=== PATIENT | male | born 1940 | race Caucasian/White ===

== ENCOUNTER → 2016-12-30 | Outpatient (CLI) | payer MEDICARE ==
--- NOTE | 2016-12-30 12:13 | CT ---
EXAMINATION TYPE: CT image guided sinus DATE OF EXAM: 12/30/2016 COMPARISON: NONE HISTORY: Pre surgical planning CT DLP: 531 mGycm. Automated Exposure Control for Dose Reduction was Utilized. TECHNIQUE: CT scan of the sinuses is performed without contrast, axial images obtained. FINDINGS: Oropharynx symmetric. Posterior nasopharynx demonstrates asymmetry on the right slight lobulation measuring 5 mm could be r elated to mucosal lesion best noted on axial image 12. Nasal septal deviation seen and there is mild mucosal thickening involving the maxillary sinuses. Mor e moderate changes are seen involving the ethmoid air cells and frontal sinus. No air-fluid levels. Osseous structures are otherwise intact. Intracranial structures and intraorbital structures have a n ormal appearance. There is a small amount of soft tissue density within the right mastoid air cells. IMPRESSION: 1. Changes of mild to moderate chronic sinusitis. 2. There does appear to be asymmetry of the mucosa of the nasopharynx measuring 5 mm on the right and best noted on axial image 12. Correlate for mucosal lesion. However, this finding appears stable karina ing back to a CT of the head dated 2012 and likely therefore is benign. Chronic right mastoiditis.
== END | disposition home or self-care (01) ==
LOC: RADCTMAIN 11:28
PROVIDERS: ATTEND Otolaryngology
DX: J32.9 Chronic sinusitis, unspecified (principal); J39.2 Other diseases of pharynx
CPT/HCPCS: 70486

== ENCOUNTER 2017-01-13 07:25 | Day surgery (SDC) | payer MEDICARE ==
[2017-01-05 08:48] VITALS: BMI 32.5
[~2017-01-13 07:25] MED LIST: DEXAMETHASONE SOD PHOSPHATE 10 MG/ML 1 ML VIAL IV ONE; DEXAMETHASONE SOD PHOSPHATE 4 MG/ML 1 ML VIAL IV ONE; FAMOTIDINE 20 MG/2 ML VIAL IV ONE; HYDROmorphone 1 MG/ML 1 ML SYRINGE IVP PRN; LIDOCAINE 1% 20 ML VIAL (10MG/ML) FOR IV START INTRADERMA PRN; MIDAZOLAM 2 MG/2 ML VIAL IV PRN; ONDANSETRON 4 MG/2 ML VIAL IVP ONE; SCOPOLAMINE 1.5MG/72HR PATCH TRANSDERM ONE; ceFAZolin 1,000 MG in DEXTROSE/WATER 1 50ML.BAG IV ONE
[2017-01-13] MEDS: OXYMETAZOLINE 0.05% NASL SPRAY 1 SPRAY BOTTLE NASAL ONE ×6 (07:45→08:07)
[2017-01-13 08:05] LABS: Glucose,Whole Blood 208 mg/dL (75-99)
[2017-01-13] MEDS: LACTATED RINGERS 1,000 ML IV SCH ×2 (08:13→09:22)
[2017-01-13] MEDS ORDERED: MIDAZOLAM 2 MG/2 ML VIAL ONE (09:24)
[2017-01-13] MEDS ORDERED: PROPOFOL 10 MG/ML 20 ML VIAL IV ONE (09:24)
[2017-01-13] MEDS ORDERED: SUCCINYLCHOLINE CHLORIDE 100 MG/5 ML SYR IV ONE (09:24)
[2017-01-13] MEDS ORDERED: LIDOCAINE 1% INJ 10MG/ML (20 ML MDV) ONE (09:24)
[2017-01-13] MEDS ORDERED: fentaNYL (PF) 50 MCG/ML 2 ML AMP ONE (09:24)
[2017-01-13] MEDS ORDERED: FLUORESCEIN STRIPS 1 MG STRIP MISCELLANE ONE (10:00)
[2017-01-13] MEDS ORDERED: EPINEPHrine 1 MG/ML (MDV) 30 ML VIAL IRRIGATION ONE (10:00)
[2017-01-13] MEDS ORDERED: CIPROFLOXACIN-DEXAMETH 0.3-0.1% DROPS 7.5 ML BTL RIGHT EAR ONE (10:00)
[2017-01-13] MEDS ORDERED: BUPIVACAIN-EPI 0.5%-1:200,000 30 ML VIAL SQ ONE (10:00)
[2017-01-13] MEDS ORDERED: LIDOCAINE 2%-EPI 1:100,000 20 ML VIAL SQ ONE (10:01)
[2017-01-13] MEDS ORDERED: BACITRACIN 500 UNIT/GM OINT 28.4 GM TUBE TOPICAL ONE (10:50)
[2017-01-13] MEDS ORDERED: LACTATED RINGERS 1,000 ML IV ONE (10:57)
[2017-01-13 11:14] VITALS: TEMP 97.2
--- NOTE | 2017-01-13 11:17 | P.OP ---
Date of Procedure: 01/13/17 Preoperative Diagnosis: Chronic otitis media with effusion right ear Eustachian tube dysfunction right ear Conductive hearing loss right ear Chronic sinusitis and ALLERGIC fungal sinusitis Sinonasal polyposis Deviated nasal septum Hypertrophy of bilateral intranasal inferior turbinates with obstruction Postoperative Diagnosis: Same Procedure(s) Performed: Right-sided direct microscopic tympanostomy and tube placement utilizing ultraseal tube Septoplasty Bilateral outfracture compression and submucosal resection of the inferior turbinates, Image guided- Bilateral functional endoscopic sinus surgery with polypectomy Implants: Anesthesia: GETA Surgeon: Eliezer Mcginnis Estimated Blood Loss (ml): 15 Pathology: other (Sinonasal) Condition: stable Disposition: PACU Indications for Procedure: This patient presented to the office with chronic ear problems. He has right ear fullness pressure on multiple sound he was found have polyps chronic sinusitis deviated nasal septum and large and obstructive inferior turbinates. He failed medical therapy with use of cortisone nasal sprays antibiotics etc. After long discussion and review of his failure of medical therapy with decided to proceed forward with a right tube placement septoplasty correction turbinate reduction and sinus surgery with polypectomy. All risks, benefits, and alternative therapies were discussed in detail. Consent was obtained and all questions were answered. Operative Findings: Patient's right tympanic members was thickened and retracted with the middle- ear effusion present. The sinuses showed a deviated nasal septum bilateral intranasal and sinonasal polyposis block sinuses and purulence and inflammatory diseased tissue throughout all sinuses. Description of Procedure: This patient was taken to the operative room and placed in the supine position. A general inhalation anesthetic was administered to the patient by the department of anesthesia with a functioning IV line in place. The patient was monitored throughout the entire case by the department of anesthesia. The eyes were taped shut for protection. The patient was placed in a slight reverse Trendelenburg position. The patient had previously utilize Afrin nasal spray preoperatively. The nose was evaluated and the septum lateral nasal wall and inferior turbinates were injected with lidocaine 1% with epinephrine 1 100,000 bilaterally. Approximately 10 minutes were allowed wait for full vasoconstrictive effects to take place. At this point a caudal incision was made over the caudal portion of the left septum down to the mucoperichondrium. A mucoperichondrial flap was elevated on the left side and dissection was carried with use of tunnels posteriorly. We then made a crossover incision through the cartilage to the contralateral side and for the mucoperichondrial flap development was performed to the extent of visualization on the contralateral side. After the cartilage was freed with use of several crosshatching incisions and removal of some redundant strips of septal cartilage, the septum was straightened and placed back in the midline. The septum was sutured fixated to the ovarian groove. Excellent straightening occurred and the septum was visibly straight. Incision was closed with a 40 rapid Vicryl. We utilized a running nonlocking fashion for closure of the incision. A quilting stitch was used to reapproximate the septal flaps with use of a 40 rapid Vicryl. We then entered the nose with a 0 and 30 Villafuerte adi endoscope. We did utilized image guided technology for this entire procedure. We registered the anatomic we would points. We utilized a [employer] system. Throughout the entire case we utilized the image guided system for anatomic guidance. Previous to this we did inject the lateral nasal wall and middle turbinate and uncinate process with lidocaine 1% with epinephrine 1 100,000. Approximately 10 minutes were allowed wait for full vasoconstrictive effects to take place. Intranasal polyps were noted. They were noted bilaterally. The intranasal polyps were removed with use of a microdebrider. With use of a microdebrider and a pediatric backbiter, we took down the uncinate process bilaterally. We then opened the maxillary sinuses bilaterally. We utilized a microdebrider for this and entered the maxillary sinuses and removed diseased tissue and polypoid tissue. This was done bilaterally. After the maxillary sinuses were opened and the diseased tissue and polyps were removed we entered the ethmoid bulla and with use of a microdebrider and up-biting Juan, we remove the anterior septations and remove diseased tissue from the anterior ethmoids with direct visualization. We then followed the fovea frontalis through the basal lamella and into the posterior ethmoid air cells and did a total ethmoidectomy with removal of polypoid material. Once the ethmoids cells were all taken down we then entered the sphenoid sinus medially and inferiorly underneath the inferior attachment of the superior turbinate. The sphenoid sinus was opened entered and diseased tissue and polyps were removed bilaterally. This was done with a microdebrider and Blakesley. We then entered the frontal sinuses with a giraffe and up-biting Mile entered on the agar nasi cells. We open the frontal sinuses and removed sinus tissue and polypoid tissue that was diseased. We explored the frontal sinuses bilaterally. To summarize all sinuses were open all sinuses were explored and we remove diseased tissue and polyps from the sphenoid maxillary and frontal sinuses. Polyps were removed from the nose. Ethmoid sinuses were opened totally. PROPEL AND XEROGEL AND WILFRID was inserted bilaterally and minimal bleeding was encountered. We reinspected the skull base there is no signs of any orbital penetration or signs of any intracranial penetration. The sugical site was reinspected after the nasal pore was placed and no bleeding was seen. Attention was then paid to the inferior turbinates. The bilateral inferior turbinates were hypertrophic and obstructive. We entered the anterior portion of the inferior turbinates with use of a microdebrider. We remove bone and submucosal elements with use of a microdebrider bilaterally. The inferior turbinates underwent a submucosal resection with removal of submucosal tissue and bone. We obtained a much better and normal in size for breathing. The inferior turbinates were then outfractured and compressed with a Boyes nasal elevator. Excellent airway was obtained and was symmetric bilaterally. No bleeding was encountered. Attention was then paid to the right ear which was magnified with a high- powered Zeiss microscope. A tympanostomy incision was made inferiorly fluid was removed and an ultraseal tube was placed in the right ear. Patient tolerated this well. Ciprofloxacin drops were placed. We did insert to bilateral Merocel sponge packs which will be removed tomorrow by the patient. There will be removed and the patient returns to the office.
[2017-01-13 11:22] VITALS: RESP 16
[2017-01-13] MEDS ORDERED: INSULIN LISPRO (humaLOG) 300 UNIT/3 ML VIAL SQ ONE ×2 (11:30→12:44)
[2017-01-13 11:32] LABS: Glucose,Whole Blood 385 mg/dL (75-99)
[2017-01-13 12:47] LABS: Glucose,Whole Blood 387 mg/dL (75-99)
[2017-01-13 13:38] LABS: Glucose,Whole Blood 339 mg/dL (75-99)
[2017-01-13 14:33] VITALS: BP 136/81; PULSE 100
== END 2017-01-13 15:09 | disposition home or self-care (01) ==
LOC: OR 07:25
PROVIDERS: ATTEND Otolaryngology
DX: J32.4 Chronic pansinusitis (principal); J34.2 Deviated nasal septum; J34.3 Hypertrophy of nasal turbinates; H69.80 Other specified disorders of Eustachian tube, unspecified ear; H90.6 Mixed conductive and sensorineural hearing loss, bilateral; H65.491 Other chronic nonsuppurative otitis media, right ear; J30.9 Allergic rhinitis, unspecified; H91.13 Presbycusis, bilateral; I10 Essential (primary) hypertension; E11.9 Type 2 diabetes mellitus without complications; J33.8 Other polyp of sinus; Z88.5 Allergy status to narcotic agent; Z79.899 Other long term (current) drug therapy; Z79.2 Long term (current) use of antibiotics; Z79.82 Long term (current) use of aspirin; Z79.52 Long term (current) use of systemic steroids
CPT/HCPCS: 88305; 88300; 30140; 30520; 31255; 69436; C2625; C1726; J0171; J2250; J1100; J2405; J2001; J3010; J0690; J0330; J2704

== ENCOUNTER → 2020-07-31 | Outpatient (CLI) | payer MEDICARE ==
--- NOTE | 2020-07-31 11:20 | P.STRESS ---
- Stress Test Note Stress Test Results/Findings: Exam Performed: stress test Exam Date: 07/31/20 Reason for Exam: HTN, EDEMA Height: 5 ft 9 in Weight: 111.4 kg Protocol: BELIA Stage: 2 Duration of Exercise: 6:00 MINUTES Resting Heart Rate: 76 Resting Blood Pressure: 150/76 Maximum Achieved Heart Rate: 137 Maximum Achieved Blood Pressure: 190/63 85% PMHR: 120 100% PMHR: 141 METS: 7.1 Technologist Comment: Stress Test Results/Findings: This is a 80-year-old gentleman being evaluated for cardiac status. Patient has hypertension, diabetes, hypercholesterolemia. Stress data: Baseline EKG showed sinus rhythm with normal DC interval, QRS duration. Patient walked on the Belia protocol for 6 minutes achieving a maximum rate of 137 with a blood pressure of 190/63. EKGs taken during and after exercise did not reveal any significant changes from the baseline. Patient did not experience chest pain. Final impression #1. Negative stress test #2 patient did not experience any chest pain #3. No arrhythmias noted. 4. Patient exercise capacity is average
--- NOTE | 2020-07-31 11:40 | ECHOF ---
Referral Reason:I10 Hypertension; R60.9 edema MEASUREMENTS -------- HEIGHT: 175.3 cm WEIGHT: 111.1 kg BP: RVIDd: 4.1 cm (< 3.3) IVSd: 1.8 cm (0.6 - 1.1) LVIDd: 4.0 cm (3.9 - 5.3) LVPWd: 1.9 cm (0.6 - 1.1) IVSs: 2.1 cm LVIDs: 2.7 cm LVPWs: 1.8 cm LAESV Index (A-L): 17.04 ml/m Ao Diam: 3.3 cm (2.0 - 3.7) AV Cusp: 1.5 cm (1.5 - 2.6) MV E Jaspreet: 0.65 m/s MV DecT: 248 ms MV A Jaspreet: 0.93 m/s MV E/A Ratio: 0.70 AV maxP.07 mmHg AV meanP.25 mmHg AR PHT: 656 ms RAP: 5.00 mmHg RVSP: 31.05 mmHg FINDINGS -------- Sinus rhythm. This was a technically adequate study. The left ventricular size is normal. There is severe concentric left ventricular hypertrophy. Ove rall left ventricular systolic function is normal with, an EF between 55 - 60 %. The diastolic fill ing pattern is normal for the age of the patient 11.03. The right ventricle is moderately enlarged. Normal LA size by volume 22+/-6 ml/m2. The right atrial size is normal. Interatrial and interventricular septum intact. There is mild aortic regurgitation. There is mild aortic stenosis present. Peak/mean gradient acr oss the Aortic Valve is 17.07mmHg / 10.25mmHg. No mitral regurgitation. Mild tricuspid regurgitation present. There is no evidence of pulmonary hypertension. The right v entricular systolic pressure, as measured by Doppler, is 31.05mmHg. There is no pulmonic regurgitation present. The aortic root size is normal. Normal inferior vena cava with normal inspiratory collapse consistent with estimated right atrial pre ssure of 5 mmHg. There is no pericardial effusion. CONCLUSIONS -------- 1. The left ventricular size is normal. 2. There is severe concentric left ventricular hypertrophy. 3. Overall left ventricular systolic function is normal with, an EF between 55 - 60 %. 4. The diastolic filling pattern is normal for the age of the patient 11.03 5. The right ventricle is moderately enlarged. 6. There is mild aortic regurgitation. 7. There is mild aortic stenosis present. 8. Peak/mean gradient across the Aortic Valve is 17.07mmHg / 10.25mmHg. 9. Mild tricuspid regurgitation present. VALUE STREAM COACH: Ruchi Sommer RDCS
--- NOTE | 2020-08-01 10:08 | EST ---
Exam Performed: stress test Exam Date: 07/31/20 Reason for Exam: HTN, EDEMA Height: 5 ft 9 in Weight: 111.4 kg Protocol: BELIA Stage: 2 Duration of Exercise: 6:00 MINUTES Resting Heart Rate: 76 Resting Blood Pressure: 150/76 Maximum Achieved Heart Rate: 137 Maximum Achieved Blood Pressure: 190/63 85% PMHR: 120 100% PMHR: 141 METS: 7.1 Technologist Comment: Stress Test Results/Findings: This is a 80-year-old gentleman being evaluated for cardiac status. Patient has hypertension, diabetes, hypercholesterolemia. Stress data: Baseline EKG showed sinus rhythm with normal WI interval, QRS duration. Patient walked on the Belia protocol for 6 minutes achieving a maximum rate of 137 with a blood pressure of 190/63. EKGs taken during and after exercise did not reveal any significant changes from the baseline. Patient did not experience chest pain. Final impression #1. Negative stress test #2 patient did not experience any chest pain #3. No arrhythmias noted. 4. Patient exercise capacity is average MTDD
== END | disposition home or self-care (01) ==
LOC: RADNMMAIN 08:40
PROVIDERS: ATTEND Family Medicine
DX: I10 Essential (primary) hypertension (principal); I08.2 Rheumatic disorders of both aortic and tricuspid valves
CPT/HCPCS: 93017; 93306

== ENCOUNTER 2024-08-29 12:28 | Emergency (ER) | payer MEDICARE ==
--- NOTE | 2024-08-29 14:48 | ED ---
Extremity Problem HPI - General Chief complaint: Extremity Problem,Nontraumatic Stated complaint: R knee pain Time Seen by Provider: 08/29/24 14:44 Source: patient, RN notes reviewed Mode of arrival: ambulatory Limitations: no limitations - History of Present Illness Initial comments: 84-year-old male presenting for right knee pain x 3 days. States the pain is in the popliteal aspect of the right knee and only with weightbearing and radiates to the calf. States he did fall onto his anterior right knee approximately 2 to 3 weeks ago however did not have pain at that time. Denies blood thinners. - Related Data Home Medications Medication Instructions Recorded Confirmed Amoxicillin 875 mg PO Q12HR 01/05/17 01/05/17 Aspirin [Adult Low Dose Aspirin EC] 81 mg PO DAILY 01/05/17 01/05/17 Olmesartan [Benicar] 20 mg PO DAILY 01/05/17 01/05/17 predniSONE 30 mg PO DAILY 01/05/17 01/05/17 Previous Rx's Medication Instructions Recorded Amoxicillin/Potassium Clav 1 each PO Q12HR #20 tab 01/13/17 [Augmentin 875-125 Tablet] Ibuprofen [Motrin] 600 mg PO Q6HR PRN #60 tab 01/13/17 Ofloxacin 0.3% Ophth Soln [Ocuflox 5 - 7 drops RIGHT EAR BID #10 01/13/17 Ophth Soln] bottle predniSONE [Deltasone] 20 mg PO DIRECTED #5 tab 01/13/17 Cyclobenzaprine [Flexeril] 10 mg PO TID PRN #15 tab 08/29/24 Allergies Allergy/AdvReac Type Severity Reaction Status Date / Time bee venom protein (honey bee) Allergy Anaphylaxis Verified 08/29/24 12:54 codeine Allergy Rash/Hives, Verified 08/29/24 12:54 headaches Review of Systems ROS Statement: Those systems with pertinent positive or pertinent negative responses have been documented in the HPI. ROS Other: All systems not noted in ROS Statement are negative. Past Medical History Past Medical History: Diabetes Mellitus, Hypertension Additional Past Medical History / Comment(s): diet controlled diabetes, pt states antibiotics ordered preprocedure per dr zurita History of Any Multi-Drug Resistant Organisms: None Reported Past Surgical History: Hernia Repair, Tonsillectomy Past Anesthesia/Blood Transfusion Reactions: No Reported Reaction Past Psychological History: No Psychological Hx Reported Smoking Status: Never smoker Past Alcohol Use History: Rare Past Drug Use History: None Reported - Past Family History Sister(s) Family Medical History: CVA/TIA General Exam Limitations: no limitations General appearance: alert, in no apparent distress Head exam: Present: atraumatic, normocephalic, normal inspection Right Upper Leg exam: Present: normal inspection, full ROM. Absent: tenderness, swelling Knee exam: Present: normal inspection, full ROM, tenderness (Popliteal tenderness), swelling. Absent: abrasion, laceration, deformity, dislocation, erythema, effusion, pain w/ pronation/supination, posterior draw sign, pain/laxity with valgus, pain/laxity with varus Lower Leg exam: Present: normal inspection, full ROM. Absent: tenderness, swelling Ankle exam: Present: normal inspection, full ROM. Absent: tenderness, swelling Foot/Toe exam: Present: normal inspection, full ROM. Absent: tenderness, swelling Neurovascular tendon exam: Present: no vascular compromise. Absent: pulse deficit, abnormal cap refill, motor deficit Neurological exam: Present: alert, oriented X3 Psychiatric exam: Present: normal affect, normal mood Skin exam: Present: warm, dry, intact, normal color. Absent: rash Course Vital Signs 08/29/24 08/29/24 12:52 17:44 Temperature 97.8 F 98.4 F Pulse Rate 78 76 Respiratory 18 20 Rate Blood Pressure 171/73 165/81 O2 Sat by Pulse 98 99 Oximetry Medical Decision Making - Medical Decision Making Was pt. sent in by a medical professional or institution (, PA, APARTMENT LEASING MANAGER, urgent care, hospital, or penitentiary...) When possible be specific @ -No Did you speak to anyone other than the patient for history (EMS, parent, family, police, friend...)? What history was obtained from this source @ -No Did you review nursing and triage notes (agree or disagree)? Why? @ -I reviewed and agree with nursing and triage notes Were old charts reviewed (outside hosp., previous admission, EMS record, old EKG, old radiological studies, urgent care reports/EKG's, penitentiary records)? Report findings @ -No old charts were reviewed Differential Diagnosis (chest pain, altered mental status, abdominal pain women, abdominal pain men, vaginal bleeding, weakness, fever, dyspnea, syncope, headache, dizziness, GI bleed, back pain, seizure, CVA, palpatations, mental health, musculoskeletal)? @ -Differential Musculoskeletal Muscular strain, contusion, ligament sprain, fracture, arthritis, septic arthritis, bursitis, cellulitis, muscle spasm, nerve compression, DVT, arterial occlusion, herpes zoster, electrolyte abnormality, tumor.... This is not meant to be in all inclusive list EKG interpreted by me (3pts min.). @ -None X-rays interpreted by me (1pt min.). @ -X-ray right knee reveals no acute process CT interpreted by me (1pt min.). @ -None U/S interpreted by me (1pt. min.). @ -Ultrasound right lower extremity negative for DVT What testing was considered but not performed or refused? (CT, X-rays, U/S, labs)? Why? @ -None What meds were considered but not given or refused? Why? @ -None Did you discuss the management of the patient with other professionals (professionals i.e. , PA, APARTMENT LEASING MANAGER, lab, RT, psych nurse, social science teacher, home energy auditor, teacher, principal gifts officer, case management coordinator)? Give summary @ -No Was smoking cessation discussed for >3mins.? @ -No Was critical care preformed (if so, how long)? @ -No Were there social determinants of health that impacted care today? How? (Homelessness, low income, unemployed, alcoholism, drug addiction, transportation, low edu. Level, literacy, decrease access to med. care, residential, rehab)? @ -No Was there de-escalation of care discussed even if they declined (Discuss DNR or withdrawal of care, Hospice)? DNR status @ -No What co-morbidities impacted this encounter? (DM, HTN, Smoking, COPD, CAD, Cancer, CVA, ARF, Chemo, Hep., AIDS, mental health diagnosis, sleep apnea, morbid obesity)? @ -None Was patient admitted / discharged? Hospital course, mention meds given and route, prescriptions, significant lab abnormalities, going to OR and other pertinent info. @ -Discharge. 84-year-old male presenting for right knee pain x 3 days status post knee injury 3 weeks ago. Pain is in popliteal aspect of right knee. Neurovascularly intact. No sign of bacterial infection. X-ray right knee reveals no acute process. Ultrasound right lower extremity negative for DVT. Discussed is also with patient. I highly suspect symptoms are due to right meniscal tear. Offered knee immobilizer however patient states he is able to ambulate with a walker. Patient states he will follow-up with his orthopedic doctor Dr. Reilly. Appropriate return precautions and supportive care/follow-up care discussed. Case was discussed with my ED attending Dr. Alves. Undiagnosed new problem with uncertain prognosis? @ -No Drug Therapy requiring intensive monitoring for toxicity (Heparin, Nitro, Insulin, Cardizem)? @ -No Were any procedures done? @ -No Diagnosis/symptom? @ -Right knee sprain Acute, or Chronic, or Acute on Chronic? @ -Acute Uncomplicated (without systemic symptoms) or Complicated (systemic symptoms)? @ -Uncomplicated Side effects of treatment? @ -No Exacerbation, Progression, or Severe Exacerbation? @ -No Poses a threat to life or bodily function? How? (Chest pain, [place], [place], pneumonia, PE, COPD, DKA, ARF, appy, cholecystitis, CVA, Diverticulitis, Homicidal, Suicidal, threat to staff... and all critical care pts) @ -No Disposition Clinical Impression: Right knee pain Disposition: HOME SELF-CARE Condition: Stable Instructions (If sedation given, give patient instructions): Knee Pain (ED) Additional Instructions: Take Flexeril as needed for pain. Follow-up with Dr. Reilly as discussed. Please return to the Emergency Department if symptoms worsen or any other concerns. Prescriptions: Cyclobenzaprine [Flexeril] 10 mg PO TID PRN #15 tab PRN Reason: Muscle Spasm Is patient prescribed a controlled substance at d/c from ED?: No Referrals: Leon Masterson DO [Primary Care Provider] - 1-2 days Time of Disposition: 17:23
--- NOTE | 2024-08-29 15:58 | XR ---
EXAMINATION TYPE: XR knee complete RT DATE OF EXAM: 08/29/2024 3:53 PM INDICATION: Patient age:Male; 84 years old; Reason for study: right knee injury; PHH. pain COMPARISON: None. TECHNIQUE: The Right knee(s) was examined in Frontal, lateral and oblique projections. FINDINGS: No evidence of any acute osseous pathology, soft tissue swelling, or joint effusion is no tia. Small suprapatellar spurring. Vascular sclerosis. IMPRESSION: No acute osseous pathology. [facility], , 08/29/2024 3:55 PM
--- NOTE | 2024-08-29 16:34 | US ---
EXAMINATION TYPE: US venous doppler duplex LE RT DATE OF EXAM: 08/29/2024 2:41 PM COMPARISON: NONE CLINICAL INDICATION: Male, 84 years old with history of pain; pain, Pain TECHNIQUE: The lower extremity deep venous system is examined utilizing real time linear array sonog ismael with graded compression, color doppler sonography, and spectral doppler. SIDE PERFORMED: Right FINDINGS: VESSELS IMAGED: Common Femoral Vein Deep Femoral Vein Greater Saphenous Vein * Femoral Vein Popliteal Vein Small Saphenous Vein * Proximal Calf Veins (* superficial vessels) Right Leg: No evidence for DVT, Color Doppler imaging shows patency of the vessels. Spectral wavefor ms are within normal limits. IMPRESSION: No ultrasound evidence for deep venous thrombosis. [facility], , 08/29/2024 4:32 PM
[2024-08-29 17:45] VITALS: BP 165/81; PULSE 76; RESP 20; TEMP 98.4
== END 2024-08-29 17:53 | disposition home or self-care (01) ==
LOC: EC 12:28
DX: S83.91XA Sprain of unspecified site of right knee, initial encounter (principal); Z91.030 Bee allergy status; Z88.5 Allergy status to narcotic agent; W19.XXXA Unspecified fall, initial encounter
CPT/HCPCS: 99284